=== PATIENT | male | born 1990 | race American Indian/Alaskan Native ===

== ENCOUNTER 2016-04-24 03:28 | Emergency (ER) | payer OTHER ==
[2016-04-24 05:45] VITALS: BP 113/73
--- NOTE | 2016-04-24 06:12 | Emergency Department Report ---
HPI - General Chief Complaint: Extremity Injury, Lower Time Seen by Provider: 04/24/16 06:00 - HPI HPI: 25-year-old male presents to ED complaining of left ankle pain 1 day. Patient states he was playing earlier today when he twisted his ankle and pain began couple of hours later. Patient describes been as throbbing in nature and nonradiating, 7 out of 10 in intensity and has not taken any medications for the pain. Patient admits mild pain with weightbearing on foot. Patient denies fevers/chills/nausea/vomiting/abdominal pain/shortness of breath/ chest pain or any other problems. ED Past Medical Hx - Past Medical History Previous Medical History?: No - Medications Home Medications: Home Medications Medication Instructions Recorded Confirmed Last Taken Type Cyclobenzaprine [Flexeril] 10 mg PO QHS PRN #20 tablet 04/24/16 Unknown Rx Ibuprofen [Motrin 800 MG tab] 800 mg PO Q8HR PRN #30 tablet 04/24/16 Unknown Rx ED Review of Systems ROS: Stated complaint: LEFT ANKLE INJURY Other details as noted in HPI Constitutional: denies: chills, fever, weakness Eyes: denies: eye pain, eye discharge, vision change ENT: denies: ear pain, throat pain, dental pain, hearing loss Respiratory: denies: cough, shortness of breath, wheezing Cardiovascular: denies: chest pain, palpitations Endocrine: no symptoms reported Gastrointestinal: denies: abdominal pain, nausea, vomiting, diarrhea, constipation Genitourinary: denies: urgency, dysuria Musculoskeletal: arthralgia, myalgia. denies: back pain, joint swelling Skin: denies: rash, lesions Neurological: denies: headache, weakness, paresthesias Psychiatric: denies: anxiety, depression Hematological/Lymphatic: denies: easy bleeding, easy bruising Physical Exam - Physical Exam Vital Signs: Vital Signs 04/24/16 04/24/16 04:49 05:25 Temperature 97.6 F 97.8 F Pulse Rate 91 H 73 Respiratory 20 20 Rate Blood Pressure 127/74 Blood Pressure 113/73 [Right] O2 Sat by Pulse 100 97 Oximetry Physical Exam: GENERAL: Alert and oriented x3, no apparent distress, Normal Gait, atraumatic. HEAD: Head is normocephalic and a-traumatic. NECK: Supple. Non edematous, No carotid bruits. No lymphadenopathy or thyromegaly. LUNGS: Symetrical with respiration, No wheezing, no rales or crackles, CTAB. HEART: S1, S2 present, regular rate and rhythm without murmur, no rubs, no gallops. ABDOMEN: No organomegaly was noted,Positive bowel sounds, soft, and non- distended. . Nontender to palpation on all Quadrants, NO CVA tenderness. EXTREMITIES/MUSCULOSKELETAL: No cyanosis, clubbing, rash, lesions or edema. Full ROM bilaterally. UE/LE Pulses 2+ bilaterally. LE and UE 5+ strength bilaterally. Pain with plantar flexion and extension of the left foot. Tenderness to palpation of the lateral aspect of the left ankle. Nonerythematous, nonedematous NEUROLOGIC: No focal Deficit, Cranial nerves II through XII are grossly intact. No loss of sensation, SKIN: Warm and dry, No lesions, No ulceration or induration present. ED Course Vital Signs 04/24/16 04/24/16 04:49 05:25 Temperature 97.6 F 97.8 F Pulse Rate 91 H 73 Respiratory 20 20 Rate Blood Pressure 127/74 Blood Pressure 113/73 [Right] O2 Sat by Pulse 100 97 Oximetry ED Medical Decision Making - Radiology Data Radiology results: report reviewed, image reviewed FINAL REPORT PROCEDURE: XR ANKLE 3 LT TECHNIQUE: LEFT ankle radiographs, AP, lateral, and oblique views. CPT 16382 HISTORY: unable to bear weight left ankle after injury COMPARISON: No prior studies are available for comparison. FINDINGS: Fracture (s) and/or Dislocation(s): None. Alignment: Normal. Joint space(s): Normal. Soft tissues: Normal. Bone mineralization: Normal. Foreign bodies: None. Calcaneal spurring: None. IMPRESSION: Normal Examination. Transcribed By: CO Dictated By: ROSEMARY GUZMAN MD Electronically Authenticated By: ROSEMARY GUZMAN MD Signed Date/Time: 04/24/16 0705 - Medical Decision Making 25-year-old male presents with left ankle sprain. X-ray of foot ordered. X-ray of foot shows no dislocation, no fractures seen. x-ray report concurs with film. Normal x-ray- See above discussed the patient x-ray findings. Discussed with patient rice protocol. Discussed the patient will follow-up with primary care physician. Pain medication and Flexeril for home medications. Discussed the patient took medication as prescribed. Patient verbally understands and will comply to follow instructions given. Critical care attestation.: If time is entered above; I have spent that time in minutes in the direct care of this critically ill patient, excluding procedure time. ED Disposition Clinical Impression: Left ankle sprain Qualifiers: Encounter type: initial encounter Involved ligament of ankle: unspecified ligament Qualified Code(s): S93.402A - Sprain of unspecified ligament of left ankle, initial encounter Left ankle pain Qualifiers: Chronicity: acute Qualified Code(s): M25.572 - Pain in left ankle and joints of left foot Disposition: DISCHARGED TO HOME OR SELFCARE Is pt being admited?: No Does the pt Need Aspirin: No Condition: Stable Instructions: Ankle Sprain (ED), Ankle Exercises (GEN) Prescriptions: Cyclobenzaprine [Flexeril] 10 mg PO QHS PRN #20 tablet PRN Reason: Muscle Spasm Ibuprofen [Motrin 800 MG tab] 800 mg PO Q8HR PRN #30 tablet PRN Reason: Pain Referrals: [facility] [Outside] - 3-[address] [facility] [Outside] - 3-5 Days PRIMARY CARE, [Primary Care Provider] - 3-5 Days RICHAR FABIAN MD [Referring] - 3-5 Days ZULEYMA GUY MD [Referring] - 3-5 Days MÓNICA STRICKLAND MD [Staff Physician] - 3-5 Days Forms: Work/School Release Form Time of Disposition: 06:16
--- NOTE | 2016-04-24 07:09 | XRay Report ---
FINAL REPORT PROCEDURE: XR ANKLE 3 LT TECHNIQUE: LEFT ankle radiographs, AP, lateral, and oblique views. CPT 74187 HISTORY: unable to bear weight left ankle after injury COMPARISON: No prior studies are available for comparison. FINDINGS: Fracture (s) and/or Dislocation(s): None. Alignment: Normal. Joint space(s): Normal. Soft tissues: Normal. Bone mineralization: Normal. Foreign bodies: None. Calcaneal spurring: None. IMPRESSION: Normal Examination.
== END 2016-04-24 07:20 | disposition home or self-care (01) ==
LOC: ED 03:28
DX: S93.402A Sprain of unspecified ligament of left ankle, initial encounter (principal); M25.572 Pain in left ankle and joints of left foot; X50.1XXA Overexertion from prolonged static or awkward postures, initial encounter; Y93.89 Activity, other specified; Y92.89 Other specified places as the place of occurrence of the external cause; Y99.8 Other external cause status